=== PATIENT | male | born 1970 | race Caucasian/White ===

== ENCOUNTER 2020-06-17 02:38 | Observation (INO) ==
[2020-06-17 03:10] LABS: BASOPHILS # (AUTO) 0.1 X10^3/uL (0.0-0.1); BASOPHILS % (AUTO) 0.7 % (0.2-1.0); EOSINOPHILS # (AUTO) 0.3 x10^3/uL (0.0-0.2); EOSINOPHILS % (AUTO) 3.4 % (0.9-2.9); HEMATOCRIT 43.3 % (42.0-54.0); HEMOGLOBIN 14.4 g/dL (13.5-18.0); LYMPHOCYTES # (AUTO) 2.8 X10^3/uL (1.3-2.9); LYMPHOCYTES % (AUTO) 33.2 % (21.0-51.0); MEAN CORPUSCULAR HEMOGLOBIN 28.1 pg (27.0-34.0); MEAN CORPUSCULAR HGB CONC 33.4 g/dL (33.0-35.0); MEAN CORPUSCULAR VOLUME 84.1 fL (80.0-100.0); MEAN PLATELET VOLUME 7.4 fL (7.4-11.0); MONOCYTES # (AUTO) 0.4 x10^3/uL (0.3-0.8); MONOCYTES % (AUTO) 4.9 % (0.0-13.0); NEUTROPHILS # (AUTO) 4.9 x10^3/uL (2.2-4.8); NEUTROPHILS % (AUTO) 57.8 % (42.0-75.0); PLATELET COUNT 225 X10^3/uL (150.0-450.0); RED BLOOD COUNT 5.15 X10^6/uL (4.7-6.0); RED CELL DISTRIBUTION WIDTH 13.5 % (11.6-16.5); WHITE BLOOD COUNT 8.5 X10^3/uL (3.6-10.0)
[2020-06-17] MEDS ORDERED: ASPIRIN ONE (03:12)
[2020-06-17] MEDS ORDERED: NS 1000 ML 1,000 ML ONE (03:13)
--- NOTE | 2020-06-17 03:22 | DR.CP ---
HPI Time Seen Time Seen by Provider: 06/17/20 03:00 PCP Primary Care Physician: BRENNEN LOPES Complaint Chief Complaint Doctor Comments: pain was described as sharp and is now a dull ache near the left clavicle. Chief Complaint:: PT C/O CP IN THE CENTER OF THE CHEST AROUND TO HIS BACK. PATIENT STATES HE GOT UP TO USE THE REST ROOM AND HAD THE CHEST PAIN. PT STATES THAT WHEN HE WAS LEAVING THE BATHROOM HE WAS VERY DIAPHARETIC AND HE PASSED OUT. HE REPORTS HE WAS OUT ABOUT 10-15 MIN. HE NOR HIS ARE SURE IF HE HIT HIS HEAD OR ANYTHING WHEN HE PASSED OUT; HOWEVER, HE DOESN'T HURT ANYWHERE ELSE. COVID-19 Coronavirus risk:travel/contact w/high risk person: No Has patient experienced Coronavirus symptoms: No Reviewed Nurses Notes Review: Yes Source History Provided: Patient and Parent Mode of Arrival Mode of Arrival: Ambulatory Timing Onset of Chief Complaint: 06/17/20 Came on: Suddenly Pain: Resolved (nearly) Duration Duration: Constant How lon Duration: Hours Location Location of Chest Pain: Chest Chest Pain Radiation Location: Back Context Onset: At rest Cardiac Risk Factors: Hyperlipidemia and Diabetes PE Risk Factors: None History of: None Prehospital Care: None Quality Quality: Sharp Severity Severity: Moderate (at house) Modifying Factors Worsens: Nothing Impoves: Nothing Associated Signs and Symptoms Associated Signs and Symptoms: Diaphoresis and Nausea/Vomiting PMH PMH Past Medical History: Yes Past Medical History: Diabetes Past Medical History Comment: HYPERLIPIDEMIA Past Surgical History: Yes Surgical History: Appendectomy Family History History of Family Medical Conditions: No Social History Does patient currently use any type of tobacco product: No Have you used tobacco products in the last 12 months: No Type of Tobacco Use: None Does any household member use tobacco: No Alcohol Use: None Do you use any recreational Drugs:: No Lives With: Spouse and Family Lives Where: Home Travel Risk Coronavirus risk:travel/contact w/high risk person: No Has patient experienced Coronavirus symptoms: No Infectious screening In the last 2 months have you had wt loss of >10#?: NO Have you had fever, night sweats or hemotysis?: No Have you traveled outside the country in the last 6 months?: No Isolation: Standard ROS Review of Systems Constitutional: No Symptoms Reported Eyes: No Symptoms Reported ENTM: No Symptoms Reported Respiratoy: No Symptoms Reported Cardiovascular: Chest Pain and Syncope Genitourinary: No Symptoms Reported Neurological: No Symptoms Reported Musculoskeletal: No Symptoms Reported Integumentary: No Symptoms Reported Hematologic/Lymphatic: No Symptoms Reported Endocrine: No Symptoms Reported Psychiatric: No Symptoms Reported All Other Systems: Reviewed and Negative PE Vitals Vitals: Temperature 97.8 F Pulse Rate 74 Respiratory Rate 20 Blood Pressure 143/85 O2 Sat by Pulse Oximetry 100 General Limitations: No Limitations General Appearance: Alert and In No Apparent Distress Head Head Exam: Normal Inspection and Atraumatic Eyes Eye exam: Normal Appearance and EOMI ENT ENT Exam: Normal Exam and Normal Oropharynx Chest Chest Inspection: Normal Inspection and Symmetric Chest Wall Rise Respiratory Respiratory Exam: Normal Lung Sounds Bilat; negative Respiratory Distress Respiratory Exam: Bilateral: Clear to Auscultation Cardiovascular Cardiovascular Exam: Regular Rate Pulse: Normal Edema: Normal Abdominal Exam Abdominal Exam: Normal Inspection, Normal Bowel Sounds and Soft; negative Distention Extremities Extremities Exam: Normal Inspection and Full ROM Back Back Exam: Normal Inspection and Full ROM Neurologic Neurological Exam: Alert, Oriented X3, CN II-XII Intact and Normal Gait Psychiatric Psychiatric Exam: Anxious Skin Skin Exam: Normal Color COURSE Treatment Treatment: 0400: case discussed with DR. Romero observation R/O [facility] ROR Labs Reviewed Result Diagrams: 06/17/20 02:56 06/17/20 02:56 Laboratory: WBC 8.5 X10^3/uL (3.6-10.0) 06/17/20 02:56 RBC 5.15 X10^6/uL (4.7-6.0) 06/17/20 02:56 Hgb 14.4 g/dL (13.5-18.0) 06/17/20 02:56 Hct 43.3 % (42.0-54.0) 06/17/20 02:56 MCV 84.1 fL (80.0-100.0) 06/17/20 02:56 MCH 28.1 pg (27.0-34.0) 06/17/20 02:56 MCHC 33.4 g/dL (33.0-35.0) 06/17/20 02:56 RDW 13.5 % (11.6-16.5) 06/17/20 02:56 Plt Count 225 X10^3/uL (150.0-450.0) 06/17/20 02:56 MPV 7.4 fL (7.4-11.0) 06/17/20 02:56 Neut % (Auto) 57.8 % (42.0-75.0) 06/17/20 02:56 Lymph % (Auto) 33.2 % (21.0-51.0) 06/17/20 02:56 [place] % (Auto) 4.9 % (0.0-13.0) 06/17/20 02:56 Eos % (Auto) 3.4 % (0.9-2.9) H 06/17/20 02:56 Baso % (Auto) 0.7 % (0.2-1.0) 06/17/20 02:56 Neut # (Auto) 4.9 x10^3/uL (2.2-4.8) H 06/17/20 02:56 Lymph # (Auto) 2.8 X10^3/uL (1.3-2.9) 06/17/20 02:56 [place] # (Auto) 0.4 x10^3/uL (0.3-0.8) 06/17/20 02:56 Eos # (Auto) 0.3 x10^3/uL (0.0-0.2) H 06/17/20 02:56 Baso # (Auto) 0.1 X10^3/uL (0.0-0.1) 06/17/20 02:56 Absolute Nucleated RBC 0.0 /100WBC 06/17/20 02:56 Sodium 141 mmol/L (136-145) 06/17/20 02:56 Corrected Sodium 144 mmol/L (136-145) 06/17/20 02:56 Potassium 3.6 mmol/L (3.5-5.1) 06/17/20 02:56 Chloride 102 mmol/L (98-107) 06/17/20 02:56 Carbon Dioxide 27.5 mmol/L (21-32) 06/17/20 02:56 BUN 16 mg/dL (7-18) 06/17/20 02:56 Creatinine 1.36 mg/dL (0.70-1.30) H 06/17/20 02:56 Est GFR (MDRD) Af Amer > 60 (>60) 06/17/20 02:56 Est GFR (MDRD) Non-Af 59 (>60) 06/17/20 02:56 Glucose 215 mg/dL (65-99) H 06/17/20 02:56 POC Glucose (mg/dL) 188 mg/dL (65-99) H 06/17/20 02:58 Calcium 8.3 mg/dL (8.5-10.1) L 06/17/20 02:56 Corrected Calcium TNP 06/17/20 02:56 Magnesium 2.0 mg/dL (1.7-2.9) 06/17/20 02:56 Total Bilirubin 0.40 mg/dL (0.2-1.0) 06/17/20 02:56 AST 23 Units/L (15-37) 06/17/20 02:56 ALT 49 Units/L (12-78) 06/17/20 02:56 Alkaline Phosphatase 77 Units/L (46-116) 06/17/20 02:56 Creatine Kinase 136 Units/L (39-308) 06/17/20 02:56 CK-MB (CK-2) 1.2 ng/mL (0-4.0) 06/17/20 02:56 CK/CKMB % Calc 0.9 % (<4) 06/17/20 02:56 Troponin I < 0.02 ng/mL (0-1.5) 06/17/20 02:56 Total Protein 7.1 g/dL (6.4-8.2) 06/17/20 02:56 Albumin 4.0 g/dL (3.4-5.0) 06/17/20 02:56 Globulin 3.1 g/dL (2.5-4.5) 06/17/20 02:56 Albumin/Globulin Ratio 1.3 Ratio (1.1-2.1) 06/17/20 02:56 Triglycerides 160 mg/dL (0-150) H 06/17/20 02:56 Cholesterol 135 mg/dL (0-200) 06/17/20 02:56 LDL Cholesterol, Calc 68 mg/dL (0-100) 06/17/20 02:56 HDL Cholesterol 35 mg/dL (40-60) L 06/17/20 02:56 Cholesterol/HDL Ratio 3.9 (0.0-5.0) 06/17/20 02:56 XRAY XRAY Interpreted by: Radiologist X-ray Results: chest: no acute findings EKG Rate: 65 [place]: Normal Rhythm: NSR Block: None Hypertrophy: None ST: Ant Opioid Opioid Risk Tool Age (Zac box if 16-45): No History of Preadolescent Sexual Abuse: No Total: 0 Total Score Risk Category: Low Risk Copyright: Ever SOTO predicting aberrant behaviors Diagnosis Discharge Problem: Chest pain at rest Instructions Forms: Precautions for COVID19 Patient Portal Social Distancing
--- NOTE | 2020-06-17 03:24 | RAD ---
HISTORYPT C/O CP IN THE CENTER OF THE CHEST AROUND TO HIS BACK. PATIENT STATES HE GOT UP TO USE THE REST ROOM AND HAD THE CHEST PAIN. PT STATES THAT WHEN HE WAS LEAVING THE BATHROOM HE WAS VERY DIAPHARETIC AND HE PASSED OUT. HE REPORTS HE WAS TRUNCATED ...STUDYCHEST, 1 VIEWCOMPARISONNoneFINDINGSThe trachea is midline. The cardiac silhouette is unremarkable . The lungs are clear without focal infiltrate or effusion. The bony thorax is unremarkable.IMPRESSIONNo acute cardiopulmonary disease.Electronically signed by: Bianka Patterson (Jun 17, 2020 03:23:43)
[2020-06-17] MEDS ORDERED: ASPIRIN PO ONE (03:26)
[2020-06-17] MEDS ORDERED: NS 1000 ML 1,000 ML IV ONE (03:27)
[2020-06-17 03:28] LABS: BLOOD UREA NITROGEN 16 mg/dL (7-18); CALCIUM 8.3 mg/dL (8.5-10.1); CARBON DIOXIDE 27.5 mmol/L (21-32); CHLORIDE 102 mmol/L (98-107); COR NA(FOR HYPERGLY) 144 mmol/L (136-145); CREATININE 1.36 mg/dL (0.70-1.30); SODIUM 141 mmol/L (136-145); TROPONIN I < 0.02 ng/mL (0-1.5); eGFR NON BLACK RACES 59 (>60)
[2020-06-17] MEDS ORDERED: NITROSTAT SL PRN (03:30)
[2020-06-17 03:42] LABS: ALANINE AMINOTRANSFERASE 49 Units/L (12-78); ALKALINE PHOSPHATASE 77 Units/L (46-116); ASPARTATE AMINO TRANSFERASE 23 Units/L (15-37); CKMB % 0.9 % (<4); CREATINE KINASE 136 Units/L (39-308); CREATINE KINASE MB 1.2 ng/mL (0-4.0); TOTAL PROTEIN 7.1 g/dL (6.4-8.2)
[2020-06-17] MEDS ORDERED: HumuLIN R SUBCUT PRN (05:03)
[2020-06-17 05:34] VITALS: BMI 29.7
[2020-06-17 05:43] LABS: CHOL/HDL RATIO 3.9 (0.0-5.0)
[2020-06-17] MEDS ORDERED: GLUCOPHAGE ONE (08:45)
[2020-06-17] MEDS ORDERED: CRESTOR TAB 10 MG PO SCH ×2 (09:00→21:00)
[2020-06-17] MEDS ORDERED: GLUCOPHAGE PO SCH (09:00)
[2020-06-17] MEDS ORDERED: ASPIRIN PO SCH (09:00)
[2020-06-17] MEDS ORDERED: LOVENOX INJ 100 MG SYR SC SCH (09:00)
[2020-06-17 09:14] LABS: CKMB % 0.9 % (<4); CREATINE KINASE 139 Units/L (39-308); CREATINE KINASE MB 1.2 ng/mL (0-4.0); TROPONIN I < 0.02 ng/mL (0-1.5)
--- NOTE | 2020-06-17 12:34 | VAS ---
CAROTID USCLINICAL INDICATION: SYNCOPE, CPPROCEDURE: Pulsed wave and color-flow duplex imaging was utilized to evaluate the extracranial carotid arteries.COMPARISON:NoneFINDINGS:Right carotid:No hemodynamically significant stenosis involving the right carotid artery. The velocities are as follows:CCA peak systolic velocity 101 cm/sec, ICA peak systolic velocity 76 cm/sec. Flow within the right vertebral and right ECA is directed antegrade.ICA/CCA ratio: 0.76Left carotid:No hemodynamically significant stenosis involving the left carotid artery. The velocities are as follows:CCA peak systolic velocity 101 cm/sec, ICA peak systolic velocity 78 cm/sec. Flow within the left vertebral and left ECA is directed antegrade.ICA/CCA ratio: 0.78IMPRESSION:1. Normal peak systolic velocity corresponds to a less than 50% diameter stenosis of the right ICA.2. Normal peak systolic velocity corresponds to a less than 50% diameter stenosis of the left ICA.Electronically signed by: JANAE CHO (Jun 17, 2020 12:33:41)
[2020-06-17 13:21] LABS: CKMB % 0.9 % (<4); CREATINE KINASE 115 Units/L (39-308); CREATINE KINASE MB < 1.0 ng/mL (0-4.0); TROPONIN I < 0.02 ng/mL (0-1.5)
--- NOTE | 2020-06-17 13:54 | CT ---
HISTORYCHEST PAIN SOB SYNCOPY DIABETESSTUDYCTA CHESTCOMPARISONSame day chest radiographTECHNIQUECTA chest protocol with axial images from the thoracic inlet to upper abdomen with IV contrast. Sagittal and coronal reformats and MIP images were created. Automated exposure control was utilized.FINDINGSThe thyroid gland appears benign. The thoracic aorta is normal in caliber and patent without atherosclerotic disease. Pulmonary artery is normal in caliber. No filling defect to suggest pulmonary embolism. The heart is normal in size. No pericardial effusion. No pathologic adenopathy in the thorax. Hepatic steatosis. No acute osseous abnormality. The trachea and mainstem bronchi appear patent. 2 mm right middle lobe pulmonary nodule image 59 series 5. There a few other scattered less than 4 mm pulmonary nodules. Bibasilar subsegmental atelectasis. No pleural effusion or pneumothorax.IMPRESSIONNegative for pulmonary embolism. Bilateral lower lobe subsegmental atelectasis. Hepatic steatosis.Electronically signed by: Luigi Valencia (Jun 17, 2020 13:54:15)
--- NOTE | 2020-06-17 14:04 | CT ---
HISTORYSyncopal episodeSTUDYCT of the brain without contrastCOMPARISONNo prior comparisonsNoncontrast CT of the head is performed in the axial plane and is reconstructed with multiplanar imaging sequences.Radiation dose reduction was achieved through individualized adjustment of kVP and/or mA, through adaptive statistical iterative reconstruction, and/or through automated tube current modulation.FINDINGSThere is no evidence of an acute intracranial hemorrhage or extra-axial fluid collection. There is no mass effect, midline shift or evidence of cerebral edema. The ventricular size is normal. Cortical cannon-white matter differentiation is maintained without sulcal effacement. There is no evidence of an acute stage, large artery territorial infarction. The mastoid air cells are predominantly clear. There is mild, multi chamber mucosal thickening associated with the ethmoid air cells. Overall the paranasal sinuses are predominantly clear. The calvarium is intact.IMPRESSIONNo acute intracranial abnormalities.Electronically signed by: WAGNER CATALAN (Jun 17, 2020 14:04:32)
[2020-06-17 16:13] VITALS: BP 129/76
[2020-06-17 17:00] LABS: CREATINE KINASE 101 Units/L (39-308); CREATINE KINASE MB < 1.0 ng/mL (0-4.0); TROPONIN I < 0.02 ng/mL (0-1.5)
[2020-06-17] MEDS ORDERED: SNACK - Diabetic Appropriate PO SCH (20:00)
--- NOTE | 2020-06-22 13:19 | DR.CARTERS ---
Short Stay Summary - Admission Date Date of Admission: 06/17/20 - Discharge Date Discharge Date: 06/17/20 - Admission Diagnoses (1) Chest pain, rule out acute myocardial infarction Status: Acute - Hospital Course Hospital Course: IS A 50 YEAR OLD PATIENT OF OURS WHO PRESENTED TO THE ER WITH COMPLAINTS OF MID-STERNAL CHEST PAIN WITH RADIATION TO THE BACK. PATIENT REPORTED THAT PAIN STARTED SUDDENLY, ABOUT TWO HOURS PRIOR TO ARRIVAL. PATIENT REPORTED BECOMING DIZZY AND HAVING BLURRED VISION WHILE AMBULATING TO THE RESTROOM. PATIENTS SPOUSE REPORTED THAT PATIENT PASSED OUT AND LOST CONSCIOUSNESS FOR APPROXIMATELY 10-15 MINUTES. PATIENT AND SPOUSE DENIED KNOWLEDGE OF HIM HITTING HIS HEAD ON ANYTHING. HE DENIEED ANY OTHER PAIN. CHEST PAIN IS DESCRIBED SHARP, INTERMITTENT, AND IS CURRENTLY RATED 4/10. HIS PMH INCLUES DIABETES AND HYPERLIPIDEMIA. ON ARRIVAL TO THE ER, VITALS WERE 97.8-72-20-99%-121/72. LABS WERE OBTAINED. ABNORMAL LAB VALUES INCLUDED THE FOLLOWING: CREATININE 1.36, GLUCOE 215, CALCIUM 8.3, TRIGLYCERIDES 160, HCL 35. CARDIAC ENZYMES WERE WITHIN NORMAL LIMITS. EKG OBTAINED AND REVEALED: SINUS RHYTHM WITH HR 65. CHEST XRAY WAS OBTAINED AND REVEALED: NO ACUTE CARDIOPULMONARY DISEASE. HE WAS ADMITTED FOR FURTHER EVALUATION AND TREATMENT OF CHEST PAIN RULE OUT ACUTE SD. WE PLANNED TO OBTAIN SERIAL CARDIAC ENZYMES AND EKGS, A BRAIN CT, ECHO, CHEST CTA, AND CAROTID DOPPLER. WE WILL CONSULT WITH , EDITOR MAP. HE WAS STARTED ON NITROGLYCERINE 0.4MG SL Q5M PRN, LOVENOX 100MG SC DAILY, METFORMIN 500MG PO BID, ROSUVASTATIN 20MG PO DAILY, ECOTRIN 325MG PO HS, AND HUMULIN R SLIDING SCALE. OTHERWISE, WE PLANNED TO FOLLOW UP WITH AM LABS AND CONTINUE TO MONITOR. ON THE MORNING ROUNDS, PATIENT CONTINUED WITH COMPLAINTS OF INTERMITTENT CHEST PAIN. HE DENIES DIZZINESS OR BLURRED VISION THIS MORNING. ON EXAMINATION THIS MORNING, HEART IS REGULAR IN RATE AND RHYTHM. BILATERAL LUNGS ARE NOTED WITH DIMINISHED LUNG SOUNDS THROUGHOUT. ABDOMEN IS ROUND, SOFT, AND NON-TENDER WITH NORMAL BOWEL SOUNDS NOTED IN ALL QUADRANTS. HIS VITALS THIS MORNING ARE: 97.7-77-20-97%-120/72. LABS WERE OBTAINED. CARDIAC ENZYMES HAVE BEEN WITHIN NORMAL LIMITS. NO CHANGES NOTED TO EKGS. A BRAIN CT WAS OBTAINED AND REVEALED: No acute intracranial abnormalities. A CAROTID DOPPLER WAS OBTAINED AND REVEALED: 1. Normal peak systolic velocity corresponds to a less than 50% diameter stenosis of the right ICA. 2. Normal peak systolic velocity corresponds to a less than 50% diameter stenosis of the left ICA. A CHEST CTA WAS OBTAINED AND REVEALED: Negative for pulmonary embolism. Bilateral lower lobe subsegmental atelectasis. Hepatic steatosis. AN ECHO WAS OBTAINED AND REVEALED AN EJECTION FRACTION OF 66%, RVSP 20 mmHG. CONSULTED WITH PATIENT AND RECOMMENDS AN OUTPATIENT NUCLEAR STRESS TEST. WE PLANNED FOR DISCHARGE. INSTRUCTIONS FOR MEDICATIONS AND FOLLOW-UP WERE DISCUSSED WITH PATIENT AND SPOUSE. THEY VERBALIZED UNDERSTANDING OF ALL ORDERS. HE WAS DISCHARGED HOME WITH A NEW PRESCRIPTION FOR ECOTRIN 325MG PO DAILY. HE WAS INSTRUCTED TO FOLLOW UP WITH IN ONE WEEK. HE WAS DISCHARGED HOME WITH FAMILY IN STABLE CONDITION. - Discharge Medications Discharge Medications: Home Medication List aspirin [Ecotrin] 325 mg PO QDAY #90 tab 06/17/20 [Rx] metformin 500 mg PO BID 06/17/20 [History] rosuvastatin 10 mg PO HS 06/17/20 [History] Prescriptions: aspirin [Ecotrin] Derian King - Discharge Plan Disposition: HOME, SELF-CARE Condition: Stable Prescriptions: aspirin [Ecotrin] 325 mg PO QDAY #90 tab - Follow up/Referrals Follow up/Referrals: BRENNEN LOPES [Primary Care Provider] - 1 WEEK Kashmir Brown [STAFF PHYSICIAN] - 1 WEEK - Instructions Instructions: Nonspecific Chest Pain, [id number] Additional Instructions: DIET TOLERATED. ACTIVITY TOLERATED. FOLLOW UP WITH , EDITOR MAP FOR STRESS TEST. Forms: Precautions for COVID19, Patient Portal, Social Distancing
== END 2020-06-17 18:55 | disposition home or self-care (01) ==
LOC: ER 02:40 → MED/SURG 02:40
PROVIDERS: ADMIT Family Medicine; ATTEND Internal Medicine